=== PATIENT | female | born 2000 | race Caucasian/White ===

== ENCOUNTER 2019-08-28 19:59 | Emergency (ER) | payer SELFPAY ==
[2019-08-28 21:49] LABS: Urine Appearance Cloudy; Urine Bacteria 2+ (Absent); Urine Bilirubin Negative (Negative); Urine Blood 3+ (Negative); Urine Color Straw; Urine Glucose Negative (Negative); Urine Ketones Negative (Negative); Urine Nitrite Negative (Negative); Urine Protein Negative (Negative); Urine Red Blood Cell 1+(3-5/hpf) (Absent); Urine Specific Gravity 1.004 (1.010-1.030); Urine Urobilinogen Negative (Negative); Urine White Blood Cell 3+(>20/hpf) (Absent)
[2019-08-28] MEDS ORDERED: Amoxicillin/Clavulanate TAB* 875 MG PO ONE (22:02)
[2019-08-28] MEDS ORDERED: Phenazopyridine TAB* 100 MG PO ONE (22:03)
--- NOTE | 2019-08-28 22:04 | ED ---
GI/ HPI - HPI Summary HPI Summary: 19 year old female presents with dysuria today. She admits to urgency frequency. Denies any history of uti. She denies any fevers. No nausea or vomiting. No flank pain. Denies any abnormal vaginal discharge. She is on control. - History of Current Complaint Chief Complaint: EDUrogenitalProblems Time Seen by Provider: 08/28/19 21:17 Stated Complaint: UTI PER PT Pain Intensity: 7 - Allergy/Home Medications Allergies/Adverse Reactions: Allergies Allergy/AdvReac Type Severity Reaction Status Date / Time No Known Allergies Allergy Verified 08/28/19 21:24 PMH/Surg Hx/FS Hx/Imm Hx Endocrine/Hematology History: Denies: Hx Anticoagulant Therapy Respiratory History: Denies: Hx Asthma Infectious Disease History: No Infectious Disease History: Denies: Traveled Outside the [place] in Last 30 Days - Family History Known Family History: Positive: Non-Contributory - Social History Alcohol Use: Rare Substance Use Type: Reports: None Smoking Status (MU): Never Smoked Tobacco Review of Systems Negative: Fever Negative: Chest Pain Negative: Shortness Of Breath Positive: dysuria. Negative: flank pain All Other Systems Reviewed And Are Negative: Yes Physical Exam Triage Information Reviewed: Yes Vital Signs On Initial Exam: Initial Vitals Temp Pulse Resp BP Pulse Ox 98.7 F 92 18 156/94 100 08/28/19 20:16 08/28/19 20:16 08/28/19 20:16 08/28/19 20:16 08/28/19 20:16 Vital Signs Reviewed: Yes Appearance: Positive: Well-Appearing Skin: Positive: Warm, Dry Head/Face: Positive: Normal Head/Face Inspection Eyes: Positive: Normal, Conjunctiva Clear ENT: Positive: Pharynx normal Respiratory/Lung Sounds: Positive: Clear to Auscultation, Breath Sounds Present Cardiovascular: Positive: Normal, RRR Abdomen Description: Positive: Nontender, Soft Bowel Sounds: Positive: Present Musculoskeletal: Positive: Normal Neurological: Positive: Normal Psychiatric: Positive: Normal Procedures - Sedation Patient Received Moderate/Deep Sedation with Procedure: No Diagnostics - Vital Signs Vital Signs Temp Pulse Resp BP Pulse Ox 08/28/19 20:16 98.7 F 92 18 156/94 100 - Laboratory Lab Results: Lab Results 08/28/19 Range/Units 21:25 Urine Color Straw Urine Appearance Cloudy Urine pH 6.0 (5-9) Ur Specific [place] 1.004 L (1.010-1.030) Urine Protein Negative (Negative) Urine Ketones Negative (Negative) Urine Blood 3+ A (Negative) Urine Nitrate Negative (Negative) Urine Bilirubin Negative (Negative) Urine Urobilinogen Negative (Negative) Ur Leukocyte Esterase 3+ A (Negative) Urine WBC (Auto) 3+(>20/hpf) A (Absent) Urine RBC (Auto) 1+(3-5/hpf) A (Absent) Urine Bacteria 2+ A (Absent) Urine Glucose Negative (Negative) Lab Statement: Any lab studies that have been ordered have been reviewed, and results considered in the medical decision making process. GIGU Course/Dx - Course Course Of Treatment: 19 year old female presents with dysuria today. She admits to urgency frequency. Denies any history of uti. She denies any fevers. No nausea or vomiting. No flank pain. Denies any abnormal vaginal discharge. She is on control. On exam nontender abdomen. Urine shows a UTI. We'll treat with Augmentin and Pyridium. Patient understands agrees with plan. - Diagnoses Differential Diagnoses - Female: Pyelonephritis, Urinary Tract Infection, Ureteral Calculi Provider Diagnoses: UTI (urinary tract infection) Discharge ED - Sign-Out/Discharge Documenting (check all that apply): Patient Departure - Discharge Plan Condition: Good Disposition: HOME Prescriptions: Amoxicillin/Clavulanate TAB* [Augmentin TAB 875*] 875 mg PO BID #9 tab Phenazopyridine 200 mg (NF) [Pyridium 200 MG tab *] 200 mg PO TID #5 tab Patient Education Materials: Urinary Tract Infection in Women (ED) Referrals: No Primary Care Phys,NOPCP [Primary Care Provider] - Additional Instructions: Take Augmentin twice a day for 5 days, first dose given in ED Take pyridium two tablets three times a day with food for 2 days, first dose given in ED drink plenty of fluids Follow up with primary in 7 days Return to ED if develop any new or worsening symptoms - Billing Disposition and Condition Condition: GOOD Disposition: Home
[2019-08-28 22:16] VITALS: BP 148/72
== END 2019-08-28 22:13 | disposition home or self-care (01) ==
LOC: ED 19:59
DX: N39.0 Urinary tract infection, site not specified (principal); R30.0 Dysuria; Z87.440 Personal history of urinary (tract) infections
CPT/HCPCS: 81003; 81015; 87077; 87086; 87186; 99282; A9270-GY